=== PATIENT | male | born 1985 | race Caucasian/White ===

== ENCOUNTER 2016-08-17 11:12 | Emergency (ER) | payer OTHER ==
[~2016-08-17] VITALS: Ht 170.2 cm; Wt 79.2 kg
[~2016-08-17 11:12] MED LIST: NOHOMEMEDS
[2016-08-17] MEDS ORDERED: FLONASE16 G1 BOTH NARES (11:30)
[2016-08-17 14:44] VITALS: BP 125/65
== END 2016-08-17 14:45 | disposition home or self-care (01) ==
LOC: EME 11:12
DX: S05.12XA Contusion of eyeball and orbital tissues, left eye, initial encounter (principal); W22.8XXA Striking against or struck by other objects, initial encounter; Y93.63 Activity, rugby; R09.81 Nasal congestion
CPT/HCPCS: 70486; 99281; 99284